=== PATIENT | female | born 1985 | race Asian ===

== ENCOUNTER 2019-08-20 01:58 | Emergency (ER) | payer OTHER ==
[~2019-08-20] VITALS: Ht 162.6 cm; Wt 63.5 kg
[2019-08-20] MEDS ORDERED: ENBRACE HR SOF1 EACH PO (02:09)
[2019-08-20 02:29] LABS: URINE BILIRUBIN NEGATIVE (Negative); URINE BLOOD TRACE (Negative); URINE CLARITY CLEAR; URINE COLOR YELLOW; URINE GLUCOSE-RANDOM 1+ (Negative); URINE KETONES 1+ (Negative); URINE LEUKOCYTES-REFLEX NEGATIVE (Negative); URINE NITRITE-REFLEX NEGATIVE (Negative); URINE PROTEIN NEGATIVE (Negative); URINE SPECIFIC GRAVITY 1.025 (1.005-1.030); URINE UROBILINOGEN 0.2 E.U./dl (0.2-1.0)
[2019-08-20 02:32] LABS: ABSOLUTE BASOPHILS 0.1 thou/uL (0.0-0.2); ABSOLUTE EOSINOPHILS 0.3 thou/uL (0.0-0.7); ABSOLUTE LYMPHOCYTES 2.4 thou/uL (0.8-5.3); ABSOLUTE MONOCYTES 1.2 thou/uL (0.0-1.2); ABSOLUTE NEUTROPHILS 12.5 thou/uL (1.6-8.1); BASOPHILS 0.4 %; EOSINOPHILS 1.5 %; HEMATOCRIT 36.9 % (37.0-47.0); HEMOGLOBIN 12.9 gm/dL (12.0-15.0); LYMPHOCYTES 14.4 %; MCH 32.1 pg (26.0-34.0); MCV 91.7 fL (80.0-100.0); MONOCYTES 7.5 %; MPV 8.3 fl. (7.2-11.1); NUCLEATED RBCS 0 /100WBC; PLATELET COUNT* 218 thou/uL (150-400); POLYS 76.2 %; RBC 4.02 mil/uL (4.20-5.00); RDW-CV 12.8 % (10.5-14.5); WBC 16.5 thou/uL (4.0-11.0)
[2019-08-20 02:38] LABS: CREATININE 0.6 mg/dL (0.6-1.3); POTASSIUM 3.5 mmol/L (3.5-5.1)
[2019-08-20 02:42] LABS: ALBUMIN 3.1 g/dL (3.4-5.0); TOTAL BILIRUBIN 0.1 mg/dL (<0.1-1.0); TOTAL PROTEIN 6.9 g/dL (6.4-8.2)
[2019-08-20] MEDS ORDERED: CARAFATE 1 GM TA1 GM PO (03:02)
[2019-08-20 03:40] VITALS: BP 109/74
--- NOTE | 2019-08-20 10:33 | EKG ---
[place] [address] ELECTROCARDIOGRAM REPORT Name: RAMIREZ CRUZ Room: [facility]#: [id number] Admission: 08/20/19 Attend Phys: Discharge: 08/20/19 Date of : 83 Date of Service: 08/20/19201 Report #: [id number] THIS REPORT FOR: //name// [facility] ED Test Date: 2019-08-20 Test Time: 02:02:19 Pat Name: RAMIREZ CRUZ Department: Room: Gender: F [employer] Machine Operator: LOUISE : 1985 Requested By: Janet Long Order Number: [id number] Silvio MD: John Scott Measurements Intervals Lovely Rate: 68 P: 67 [place]: 160 QRS: 55 QRSD: 89 T: -4 QT: 388 QTc: 413 Interpretive Statements Sinus rhythm Borderline T wave abnormalities No previous ECG available for comparison Electronically Signed On 08-20-2019 10:32:03 CDT by John Scott [email or web address] <ELECTRONICALLY SIGNED> By: John Scott MD, [facility] 08/20/19 1032 0202 020 John Scott MD, FACC /EPI
== END 2019-08-20 03:44 | disposition home or self-care (01) ==
LOC: M.ERS 01:58
PROVIDERS: Personal Emergency Response Attendant
DX: O99.612 Diseases of the digestive system complicating pregnancy, second trimester (principal); K21.9 Gastro-esophageal reflux disease without esophagitis; Z3A.24 24 weeks gestation of pregnancy